=== PATIENT | male | born 2005 | race Caucasian/White ===

== ENCOUNTER 2025-01-11 17:30 | Emergency (ER) | payer BC, OTHER ==
[2025-01-11] MEDS ORDERED: Sodium Chloride 0.9% 10 ML Syringe FLUSH PRN (17:47)
[2025-01-11 18:06] LABS: BASOPHILS PERCENT AUTO 0.5 % (0.3-3.8); EOSINOPHILS ABSOLUTE AUTO 0.3 x10-3/uL (0.0-0.6); EOSINOPHILS PERCENT AUTO 4.8 % (0.1-6.8); HEMATOCRIT 45.6 % (38.3-50.1); HEMOGLOBIN 15.6 g/dL (12.9-17.7); LYMPHOCYTES ABSOLUTE AUTO 3.1 x10-3/uL (0.5-4.5); LYMPHOCYTES PERCENT AUTO 44.9 % (15.8-45.3); MEAN CORPUSCULAR HEMOGLOBIN 30.4 pg (27.0-33.3); MEAN CORPUSCULAR HGB CONC 34.2 g/dL (28.7-35.3); MEAN CORPUSCULAR VOLUME 88.9 fL (80.8-98.7); MONOCYTES ABSOLUTE AUTO 0.5 x10-3/uL (0.0-1.2); MONOCYTES PERCENT AUTO 7.1 % (5.5-15.2); NEUTROPHILS PERCENT AUTO 42.7 % (40.3-71.8); PLATELET COUNT,PLT 321 x10(3)uL (117-477); RED BLOOD CELL COUNT 5.13 x10(6)uL (3.90-5.90); RED CELL DISTRIBUTION WIDTH 13.1 % (12.4-15.0); WHITE BLOOD CELL COUNT,WBC 6.9 x10-3/uL (3.2-10.1)
[2025-01-11 18:16] LABS: BLOOD UREA NITROGEN,BUN 14 mg/dL (7-18); BUN/CREATININE RATIO 10.8 (9-20); CALCIUM 9.1 mg/dL (8.2-10.1); CARBON DIOXIDE,CO2 29 mmol/L (21-32); CHLORIDE,CL 104 mmol/L (100-110); CREATININE 1.3 mg/dL (0.70-1.30); ESTIMATED GFR 81 mL/min (>60); GLUCOSE RANDOM 89 mg/dL (80-116); SODIUM,NA 141 mmol/L (135-145)
[2025-01-11] MEDS: Iopamidol 755 Mg/ML 100 ML Bottle IV SCH (18:17)
[2025-01-11 18:22] LABS: A/G RATIO 1.3; ALANINE AMINOTRANSFERASE,ALT 28 U/L (12-36); ALBUMIN 4.5 g/dL (3.2-4.5); ALKALINE PHOSPHATASE 62 IU/L (56-112); ASPARTATE AMNIOTRANSFERASE,AST 23 IU/L (5-25); BILIRUBIN TOTAL 0.6 mg/dL (0.1-1.2)
[2025-01-11] MEDS: Sodium Chloride 0.9% 1,000 ML IV SCH (18:29)
[2025-01-11 19:30] LABS: BILIRUBIN,URINE NEGATIVE (NEGATIVE); GLUCOSE,URINE NORMAL (NORMAL); KETONES,URINE NEGATIVE (NEGATIVE); LEUKOCYTE ESTERASE,URINE NEGATIVE (NEGATIVE); NITRITE,URINE NEGATIVE (NEGATIVE); OCCULT BLOOD,URINE NEGATIVE (NEGATIVE); PROTEIN,URINE TRACE mg/dL (NEGATIVE); UROBILINOGEN,URINE NORMAL (NEGATIVE)
[2025-01-11 19:37] LABS: APPEARANCE,URINE CLEAR (CLEAR); COLOR,URINE YELLOW (YELLOW)
[2025-01-11 19:38] LABS: BACTERIA,URINE OCCASIONAL (NS); RBC,URINE NOT SEEN (0-5); SQUAMOUS EPITHELIAL CELLS,UR OCCASIONAL (NS,R,O); WBC,URINE 0-5 (0-5)
== END 2025-01-11 20:08 | disposition home or self-care (01) ==
LOC: FB.ED 17:30
DX: A08.4 Viral intestinal infection, unspecified (principal); F17.210 Nicotine dependence, cigarettes, uncomplicated
CPT/HCPCS: 74177; 80053; 81001; 83690; 85025; 96360; 99283; 99284-25; J7030; Q9967